=== PATIENT | female | born 1940 | race Caucasian/White ===

== ENCOUNTER → 2017-10-20 14:06 | Outpatient (CLI) | payer MEDICARE, OTHER, SELFPAY ==
[2017-10-20 15:05] LABS: Add Manual Diff / Slide Review NO; Basophils Percent Auto 1.2 % (0-2); Eosinophils Percent Auto 0.1 % (2-4); Hematocrit 40.9 % (36-46); Hemoglobin 13.2 g/dL (12.0-16.0); Lymphocytes Percent Auto 5.9 % (25-40); Mean Corpuscular HGB Conc 32.3 % (30-36); Mean Corpuscular Hemoglobin 29.1 PG (26-34); Mean Corpuscular Volume 90.3 fL (80-100); Monocytes Percent Auto 2.4 % (3-14); Neutrophils Absolute Auto 9500 /uL (3000-5900); Neutrophils Percent Auto 90.4 % (50-75); Platelet Count 239 X10^3/uL (150-400); Red Blood Cell Count 4.54 X10^6/uL (4.0-5.2); Red Cell Distribution Width 19.3 % (11.6-14.8); White Blood Cell Count 10.5 X10^3/uL (4.5-11.0)
[2017-10-20 15:55] LABS: HEMOLYSIS 23 (0-50); Iron 61 ug/dL (37-170)
[2017-10-20 16:01] LABS: Alanine Aminotransferase 30 IU/L (9-52); Albumin 3.9 g/dL (3.5-5.0); Albumin Globulin Ratio 1.3 (1.0-2.8); Alkaline Phosphatase 94 U/L (38-126); Aspartate Aminotransferase 26 IU/L (14-36); BUN Creatinine Ratio 48.3 (6-22); Bilirubin Total 0.5 mg/dL (0.2-1.3); Blood Urea Nitrogen 29 mg/dL (7-17); C-Reactive Protein Quant 1.3 mg/dL (<1.0); Calcium 9.5 mg/dL (8.4-10.2); Carbon Dioxide 28 mmol/L (22-32); Chloride 101 mmol/L (98-107); Estimated Glomerular Filt Rate > 60.0 mL/min (>60); Glucose 198 mg/dL (80-110); HEMOLYSIS 27 (0-50); Potassium 4.3 mmol/L (3.4-5.1); Sodium 139 mmol/L (137-145); Total Protein 6.9 g/dL (6.3-8.2)
[2017-10-20 16:06] LABS: Percent Iron Saturation 17 % (15-50); Total Iron Binding Capacity 362 ug/mL (265-497); Transferrin 286 mg/dL (206-381)
[2017-10-20 16:13] LABS: Vitamin D 25 Hydroxy (D3) 30.6 ng/mL (30.0-100.0)
[2017-10-20 16:44] LABS: Erythrocyte Sedimentation Rate 7 MM/HR (0-20)
== END ==
PROVIDERS: Family Provider Family Medicine; PCP Family Medicine; Visit Provider Internal Medicine Rheumatology
DX: M35.3 Polymyalgia rheumatica (principal); R60.0 Localized edema; D50.9 Iron deficiency anemia, unspecified; D68.51 Activated protein C resistance; E55.9 Vitamin D deficiency, unspecified
CPT/HCPCS: 36415; 80053; 82306; 83540; 83550; 85025; 85651; 86140

== ENCOUNTER → 2017-11-05 15:59 | Outpatient (CLI) | payer MEDICARE, OTHER, SELFPAY ==
[2017-11-05 16:24] LABS: Add Manual Diff / Slide Review NO; Basophils Percent Auto 0.4 % (0-2); Eosinophils Percent Auto 0.1 % (2-4); Hematocrit 40.2 % (36-46); Hemoglobin 13.2 g/dL (12.0-16.0); Mean Corpuscular HGB Conc 32.9 % (30-36); Mean Corpuscular Volume 91.1 fL (80-100); Monocytes Percent Auto 4.1 % (3-14); Neutrophils Absolute Auto 9800 /uL (3000-5900); Neutrophils Percent Auto 87.4 % (50-75); Platelet Count 234 X10^3/uL (150-400); Red Blood Cell Count 4.42 X10^6/uL (4.0-5.2); Red Cell Distribution Width 17.6 % (11.6-14.8); White Blood Cell Count 11.2 X10^3/uL (4.5-11.0)
[2017-11-05 17:11] LABS: Erythrocyte Sedimentation Rate 4 MM/HR (0-20)
[2017-11-05 17:15] LABS: HEMOLYSIS 39 (0-50); Iron 77 ug/dL (37-170)
[2017-11-05 17:19] LABS: Alanine Aminotransferase 44 IU/L (9-52); Albumin 3.7 g/dL (3.5-5.0); Albumin Globulin Ratio 1.4 (1.0-2.8); Alkaline Phosphatase 95 U/L (38-126); Aspartate Aminotransferase 41 IU/L (14-36); Bilirubin Total 0.4 mg/dL (0.2-1.3); Blood Urea Nitrogen 29 mg/dL (7-17); C-Reactive Protein Quant 0.9 mg/dL (<1.0); Calcium 9.4 mg/dL (8.4-10.2); Carbon Dioxide 29 mmol/L (22-32); Chloride 101 mmol/L (98-107); Estimated Glomerular Filt Rate > 60.0 mL/min (>60); Globulin 2.7 g/dL (1.7-4.1); Glucose 132 mg/dL (80-110); HEMOLYSIS 21 (0-50); Potassium 4.5 mmol/L (3.4-5.1); Sodium 137 mmol/L (137-145); Total Protein 6.4 g/dL (6.3-8.2); Vitamin D 25 Hydroxy (D3) 27.7 ng/mL (30.0-100.0)
[2017-11-05 17:27] LABS: Percent Iron Saturation 22 % (15-50); Total Iron Binding Capacity 352 ug/dL (265-497); Transferrin 277 mg/dL (206-381)
== END ==
PROVIDERS: Family Provider Internal Medicine Rheumatology; PCP Family Medicine; Visit Provider Family Medicine
DX: M35.3 Polymyalgia rheumatica (principal); R60.0 Localized edema; D50.9 Iron deficiency anemia, unspecified; D68.51 Activated protein C resistance; E55.9 Vitamin D deficiency, unspecified
CPT/HCPCS: 36415; 80053; 82306; 83540; 83550; 85025; 85651; 86140

== ENCOUNTER → 2017-12-09 14:45 | Outpatient (CLI) | payer MEDICARE, OTHER, SELFPAY ==
[2017-12-09 15:19] LABS: Add Manual Diff / Slide Review NO; Basophils Percent Auto 0.7 % (0-2); Eosinophils Percent Auto 0.1 % (2-4); Hematocrit 40.6 % (36-46); Hemoglobin 13.5 g/dL (12.0-16.0); Lymphocytes Percent Auto 8.5 % (25-40); Mean Corpuscular HGB Conc 33.2 % (30-36); Mean Corpuscular Hemoglobin 31.6 PG (26-34); Mean Corpuscular Volume 95.1 fL (80-100); Monocytes Percent Auto 3.3 % (3-14); Neutrophils Absolute Auto 9000 /uL (3000-5900); Neutrophils Percent Auto 87.4 % (50-75); Platelet Count 234 X10^3/uL (150-400); Red Blood Cell Count 4.27 X10^6/uL (4.0-5.2); Red Cell Distribution Width 16.8 % (11.6-14.8); White Blood Cell Count 10.3 X10^3/uL (4.5-11.0)
[2017-12-09 16:07] LABS: Alanine Aminotransferase 46 IU/L (9-52); Albumin Globulin Ratio 1.7 (1.0-2.8); Alkaline Phosphatase 94 U/L (38-126); Aspartate Aminotransferase 31 IU/L (14-36); Bilirubin Total 0.5 mg/dL (0.2-1.3); Blood Urea Nitrogen 28 mg/dL (7-17); Carbon Dioxide 32 mmol/L (22-32); Chloride 99 mmol/L (98-107); Estimated Glomerular Filt Rate > 60.0 mL/min (>60); Globulin 2.3 g/dL (1.7-4.1); Glucose 129 mg/dL (80-110); HEMOLYSIS < 15 (0-50); Potassium 4.7 mmol/L (3.4-5.1); Sodium 139 mmol/L (137-145); Total Protein 6.3 g/dL (6.3-8.2)
[2017-12-09 16:18] LABS: C-Reactive Protein Quant < 0.5 mg/dL (<1.0)
== END ==
PROVIDERS: Family Provider Internal Medicine Rheumatology; PCP Family Medicine; Visit Provider Family Medicine
DX: M35.3 Polymyalgia rheumatica (principal); R60.0 Localized edema
CPT/HCPCS: 36415; 80053; 85025; 86140

== ENCOUNTER → 2018-01-14 14:11 | Outpatient (CLI) | payer MEDICARE, OTHER, SELFPAY ==
--- NOTE | 2018-01-14 | DI.RAD.S_ITS ---
PROCEDURE: XR PELVIS 1-2V INDICATIONS: HIP PAIN AND LOW BACK PAIN TECHNIQUE: 1 view of the lower pelvis acquired. COMPARISON: [facility], CT, ABDOMEN/PELVIS WITH CONTRAST, 01/11/2015, 9:35. FINDINGS: Bones: Patient is status post right hip arthroplasty, with hardware components in expected positions. The hip joint appears congruent. The visualized bony structures appear intact. There is severe narrowing of the left hip joint with near bone on bone contact, subchondral sclerosis and cystic change. Periarticular osteophyte formation is present. Degenerative disc and facet disease involves the inferior lumbar spine. Soft tissues: Overlying postoperative changes are noted. No suspicious soft tissue densities. IMPRESSION: 1. Right hip arthroplasty in expected position. 2. Severe left hip joint degeneration. Dictated by: Brown CASTILLO Interpreted: Raya Reno MD on 01/14/2018 at 16:52 Approved by: Bong Ferguson M.D. on 01/14/2018 at 17:11
--- NOTE | 2018-01-14 | DI.RAD.S_ITS ---
PROCEDURE: XR LUMBAR SPINE 2-3V INDICATIONS: HIP PAIN AND LOW BACK PAIN TECHNIQUE: 2 views of the lumbar spine were acquired. COMPARISON: [facility], CR, XR PELVIS 1-2V, 01/14/2018, 14:21. FINDINGS: Bones: 5 [id number] vertebrae are present. Trace dextrocurvature. Multilevel grade 1 retrolisthesis. Grade 1 spondylolisthesis L5-S1 multilevel disc degeneration, severe at L4-L5 and L5-S1 levels where there also is moderate to severe facet joint arthropathy. No vertebral body compression fractures. No suspicious bony lesions. Severe left hip joint degeneration redemonstrated and the right hip arthroplasty is incompletely visualized. Soft tissues: Overlying bowel gas pattern is normal. No suspicious soft tissue calcifications. IMPRESSION: Multilevel degenerative change. Dictated by: Brown CASTILLO Interpreted: Raya Reno MD on 01/14/2018 at 16:53 Approved by: Bong Ferguson M.D. on 01/14/2018 at 17:11
== END ==
PROVIDERS: Family Provider Internal Medicine Rheumatology; PCP Family Medicine; Visit Provider Family Medicine
DX: M51.36 Other intervertebral disc degeneration, lumbar region (principal); M51.37 Other intervertebral disc degeneration, lumbosacral region; M54.5 Low back pain; M16.12 Unilateral primary osteoarthritis, left hip; Z96.641 Presence of right artificial hip joint
CPT/HCPCS: 72100; 72170

== ENCOUNTER → 2018-02-03 15:56 | Outpatient (CLI) | payer MEDICARE, OTHER, SELFPAY ==
[2018-02-03 17:20] LABS: Add Manual Diff / Slide Review NO; Basophils Percent Auto 0.3 % (0-2); Eosinophils Percent Auto 0.4 % (2-4); Hematocrit 39.8 % (36-46); Hemoglobin 13.2 g/dL (12.0-16.0); Lymphocytes Percent Auto 17.1 % (25-40); Mean Corpuscular HGB Conc 33.1 % (30-36); Mean Corpuscular Hemoglobin 31.7 PG (26-34); Mean Corpuscular Volume 95.6 fL (80-100); Monocytes Percent Auto 13.4 % (3-14); Neutrophils Absolute Auto 5500 /uL (3000-5900); Neutrophils Percent Auto 68.8 % (50-75); Platelet Count 246 X10^3/uL (150-400); Red Blood Cell Count 4.16 X10^6/uL (4.0-5.2); Red Cell Distribution Width 16.1 % (11.6-14.8)
[2018-02-03 18:13] LABS: BUN Creatinine Ratio 35.7 (6-22); Blood Urea Nitrogen 25 mg/dL (7-17); C-Reactive Protein Quant 1.2 mg/dL (<1.0); Calcium 9.4 mg/dL (8.4-10.2); Carbon Dioxide 35 mmol/L (22-32); Chloride 99 mmol/L (98-107); Estimated Glomerular Filt Rate > 60.0 mL/min (>60); Glucose 88 mg/dL (80-110); HEMOLYSIS < 15 (0-50); Potassium 4.7 mmol/L (3.4-5.1); Sodium 141 mmol/L (137-145)
== END ==
PROVIDERS: Family Provider Internal Medicine Rheumatology; PCP Family Medicine; Visit Provider Family Medicine
DX: M35.3 Polymyalgia rheumatica (principal); M27.62 Post-osseointegration biological failure of dental implant; M54.5 Low back pain
CPT/HCPCS: 36415; 80048; 85025; 86140

== ENCOUNTER → 2018-02-24 12:48 | Outpatient (CLI) | payer MEDICARE, OTHER, SELFPAY ==
--- NOTE | 2018-02-24 | DI.ECHO.S_ITS ---
[place] [facility]---------+ [facility] +---------+ : : [address] : : : : [id number] : : : : Phone: [phone]+ Echocardiogram Report + + :Name: NICK NEWTON V Study Date: 02/24/2018 Height: 62 in : :[facility] Weight: 250 lb : : Gender: Female BSA: 2.1 m2 : :: 1940 Age: 77 yrs BP: 170/72 mmHg: :Reason For Study: Palpitations : :Ordering Physician: Dr. Gilbert : :Clif Performed By: Anna Tesfaye : + + Interpretation Summary The study quality was technically difficult. The ejection fraction is estimated to be 60-65%. There are no obvious focal wall motion abnormalities noted but poor endocardial definition reduces the sensitivity for the detection of such. There is no significant valvular heart disease. Compared to the prior echo report on 2010, there is no significant change. Procedure: A two-dimensional transthoracic echocardiogram with color flow and Doppler was performed. The study quality was technically difficult. Comparison is made with the echocardiogram of 04/16/2011. A contrast injection of Definity was performed to improve assessment of LV function. The patient was in normal sinus rhythm during the exam. The patient had occasional PVCs during the exam. Left Ventricle: The left ventricle is normal in size. Left ventricular wall thickness is normal. The ejection fraction is estimated to be 60-65%. There are no obvious focal wall motion abnormalities noted but poor endocardial definition reduces the sensitivity for the detection of such. Right Ventricle: The right ventricle is normal in size and function. Atria: The left atrium is not well visualized. The left atrium is mildly dilated. Right atrial size is normal. There is no Doppler evidence for an interatrial shunt. Mitral Valve: The mitral valve is grossly normal. There is trace mitral regurgitation. Aortic Valve: The aortic valve is not well visualized. The aortic valve appears to opens well. Spectral Doppler assessment of the aortic valve was not done on today's exam. No aortic regurgitation is present. Tricuspid Valve: The tricuspid valve is not well visualized. There is a trace or physiologic amount of tricuspid regurgitation. The right ventricular systolic pressure is estimated to be at least 21 mmHg based on an estimated right atrial pressure of 3 mm Hg. Pulmonic Valve: The pulmonic valve is not well seen, but is grossly normal. There is a trace or physiologic amount of pulmonic regurgitation. Great Vessels: The aortic root is normal size. The ascending aorta is at the upper limits of normal in size. The aortic arch could not be visualized. The IVC is of normal diameter and collapses greater than 50% with a sniff. This suggests a low right atrial pressure of 3 mm Hg. Pericardium/ Pleura There is no pericardial effusion. MMode/2D Measurements & Calculations LVIDd: 4.6 cm LVOT diam: 2.1 cm LVIDs: 2.3 cm Ao root diam: 3.0 cm FS: 50.0 % Aortic Jxn: 2.7 cm IVSd: 0.87 cm asc Aorta Diam: 3.4 cm LVPWd: 0.90 cm LV bernard. diameter/BSA (cm/m^2): 2.2 LV sys. diameter/BSA (cm/m^2): 1.1 LA A4 area: 26.4 cm2 RA long axis: 5.4 cm LA length (vol): 5.8 cm RA area: 17.7 cm2 RA vol: 49.5 ml RA : 23.5 ml/m2 IVC diam: 1.8 cm RVD1 (basal): 3.9 cm RVD2 (mid): 3.3 cm TAPSE: 2.7 cm Doppler Measurements & Calculations MV E max jose: 87.8 cm/sec TR max jose: 210.3 cm/sec MV A max jose: 69.3 cm/sec TR max P.7 mmHg MV E/A: 1.3 PA V2 max: 111.4 cm/sec Med Peak E' Jose: 8.8 cm/sec PA V2 mean: 76.3 cm/sec E/E' med: 9.9 PA mean P.5 mmHg Lat Peak E' Jose: 7.6 cm/sec PA Accel Time: 0.07 sec E/E' lat: 11.6 E/e' average: 10.8 MV dec time: 0.16 sec MV P1/2t: 47.0 msec MV P1/2t max jose: 87.8 cm/sec MVA(P1/2t): 4.7 cm2 Reading Physician:[id number]
--- NOTE | 2018-02-24 | DI.MRI.S_ITS ---
PROCEDURE: MR LUMBAR SPINE WO CON INDICATIONS: SEVERE BACK PAIN PALPITATIONS TECHNIQUE: Noncontrast sagittal T1 spin echo and T2 fast echo, sagittal STIR, axial T1 and T2 fast spin echo through the lumbar spine. In cases with scoliosis, additional coronal T2 fast spin echo may be performed. COMPARISON: [facility], , L-SPINE WITHOUT CONTRAST, 01/16/2011, 9:03. FINDINGS: Image quality: Excellent. Alignment and Curvature: There is trace anterolisthesis of L3 on L4, L5 on S1, with the former appearing new compared to prior exam. Bone Marrow: Marrow is of normal overall signal. No acute vertebral body compression fractures. Spinal Cord: Conus medullaris terminates at the L1 level. Visualized cord demonstrates normal signal and size. Paraspinous Soft Tissues: No paravertebral masses. Increased T2 signal is present within the left kidney, likely cyst. Discs: Moderate to severe desiccation is present throughout the lumbar spine. L1-L2: Minimal disc bulge without spinal stenosis. Minimal left foraminal narrowing, slightly progressive. Facet and ligamentum flavum hypertrophy are present. L2-L3: Mild disc bulge with severe spinal stenosis, new compared to prior exam. There is prominent facet and ligamentum flavum hypertrophy. There is moderate to severe bilateral foraminal narrowing, progressive compared to prior exam. L3-L4: Mild disc bulge with moderate to severe spinal stenosis, progressive compared to prior exam. No foraminal narrowing. Facet and ligamentum flavum hypertrophy are present. Mild bilateral foraminal narrowing, with minimal interval progression. L4-L5: Mild disc bulge with severe spinal stenosis, progressive compared to prior exam. Moderate bilateral foraminal narrowing, progressive compared to prior exam. L5-S1: Mild disc bulge with mild spinal stenosis, mildly, progressive. Moderate left and mild to moderate right foraminal narrowing. Facet and ligamentum flavum hypertrophy. IMPRESSION: 1. Multilevel degenerative changes are present, with areas of progression as above. 2. Multilevel foraminal narrowing is present, most notable at L3-4, L4-5, secondary to facet arthropathy. 3. Multilevel spinal stenosis, most severe at L2-3 progressive, secondary to disc bulge and facet arthropathy. Dictated by: Lucero Luna M.D. on 02/24/2018 at 14:52 Approved by: Lucero Luna M.D. on 02/24/2018 at 15:19
== END ==
PROVIDERS: Family Provider Internal Medicine Rheumatology; PCP Family Medicine; Visit Provider Family Medicine
DX: M54.5 Low back pain (principal); R00.2 Palpitations; M51.36 Other intervertebral disc degeneration, lumbar region; M51.37 Other intervertebral disc degeneration, lumbosacral region; M48.061 Spinal stenosis, lumbar region without neurogenic claudication; M48.07 Spinal stenosis, lumbosacral region; M47.816 Spondylosis without myelopathy or radiculopathy, lumbar region; M47.817 Spondylosis without myelopathy or radiculopathy, lumbosacral region
CPT/HCPCS: 72148; 93306; Q9957

== ENCOUNTER → 2018-03-29 14:47 | Outpatient (CLI) | payer MEDICARE, OTHER, SELFPAY ==
[2018-03-29 15:28] LABS: Add Manual Diff / Slide Review NO; Basophils Percent Auto 1.7 % (0-2); Eosinophils Percent Auto 0.5 % (2-4); Hematocrit 38.6 % (36-46); Hemoglobin 12.7 g/dL (12.0-16.0); Lymphocytes Percent Auto 10.8 % (25-40); Mean Corpuscular HGB Conc 32.9 % (30-36); Mean Corpuscular Hemoglobin 31.4 PG (26-34); Mean Corpuscular Volume 95.3 fL (80-100); Monocytes Percent Auto 5.1 % (3-14); Neutrophils Absolute Auto 7800 /uL (3000-5900); Neutrophils Percent Auto 81.9 % (50-75); Platelet Count 244 X10^3/uL (150-400); Red Blood Cell Count 4.05 X10^6/uL (4.0-5.2); Red Cell Distribution Width 17.1 % (11.6-14.8); White Blood Cell Count 9.6 X10^3/uL (4.5-11.0)
[2018-03-29 15:58] LABS: Iron 39 ug/dL (37-170)
[2018-03-29 16:00] LABS: Alanine Aminotransferase 44 IU/L (9-52); Albumin 4.1 g/dL (3.5-5.0); Albumin Globulin Ratio 1.9 (1.0-2.8); Alkaline Phosphatase 88 U/L (38-126); Aspartate Aminotransferase 28 IU/L (14-36); BUN Creatinine Ratio 41.7 (6-22); Bilirubin Total 0.3 mg/dL (0.2-1.3); Blood Urea Nitrogen 25 mg/dL (7-17); C-Reactive Protein Quant 0.7 mg/dL (<1.0); Calcium 9.5 mg/dL (8.4-10.2); Carbon Dioxide 34 mmol/L (22-32); Chloride 96 mmol/L (98-107); Estimated Glomerular Filt Rate > 60.0 mL/min (>60); Globulin 2.2 g/dL (1.7-4.1); Glucose 144 mg/dL (80-110); HEMOLYSIS < 15 (0-50); Sodium 141 mmol/L (137-145); Total Protein 6.3 g/dL (6.3-8.2)
== END ==
PROVIDERS: Family Provider Internal Medicine Rheumatology; PCP Family Medicine; Visit Provider Family Medicine
DX: M35.3 Polymyalgia rheumatica (principal); R60.0 Localized edema; M19.90 Unspecified osteoarthritis, unspecified site; D50.9 Iron deficiency anemia, unspecified
CPT/HCPCS: 36415; 80053; 83540; 85025; 86140

== ENCOUNTER → 2018-05-25 13:16 | Outpatient (CLI) | payer MEDICARE, OTHER, SELFPAY ==
[2018-05-25 13:52] LABS: Add Manual Diff / Slide Review NO; Basophils Percent Auto 1.2 % (0-2); Eosinophils Percent Auto 0.2 % (2-4); Hematocrit 38.8 % (36-46); Hemoglobin 12.6 g/dL (12.0-16.0); Lymphocytes Percent Auto 7.3 % (25-40); Mean Corpuscular HGB Conc 32.4 % (30-36); Mean Corpuscular Volume 95.6 fL (80-100); Monocytes Percent Auto 4.4 % (3-14); Neutrophils Absolute Auto 10100 /uL (1500-7000); Neutrophils Percent Auto 86.9 % (50-75); Platelet Count 248 X10^3/uL (150-400); Red Blood Cell Count 4.06 X10^6/uL (4.0-5.2); Red Cell Distribution Width 16.4 % (11.6-14.8); White Blood Cell Count 11.6 X10^3/uL (4.5-11.0)
[2018-05-25 14:11] LABS: Erythrocyte Sedimentation Rate 7 MM/HR (0-20)
[2018-05-25 14:25] LABS: Alanine Aminotransferase 28 IU/L (9-52); Albumin Globulin Ratio 1.7 (1.0-2.8); Alkaline Phosphatase 65 U/L (38-126); Aspartate Aminotransferase 21 IU/L (14-36); Bilirubin Total 0.4 mg/dL (0.2-1.3); Blood Urea Nitrogen 24 mg/dL (7-17); Calcium 9.5 mg/dL (8.4-10.2); Carbon Dioxide 27 mmol/L (22-32); Chloride 103 mmol/L (98-107); Estimated Glomerular Filt Rate > 60.0 mL/min (>60); Globulin 2.4 g/dL (1.7-4.1); Glucose 142 mg/dL (80-110); HEMOLYSIS < 15 (0-50); Potassium 4.3 mmol/L (3.4-5.1); Sodium 140 mmol/L (137-145); Total Protein 6.4 g/dL (6.3-8.2)
[2018-05-25 14:27] LABS: C-Reactive Protein Quant < 0.5 mg/dL (<1.0)
== END ==
PROVIDERS: Family Provider Internal Medicine Rheumatology; PCP Family Medicine; Visit Provider Family Medicine
DX: M35.3 Polymyalgia rheumatica (principal); R06.00 Dyspnea, unspecified; R60.0 Localized edema
CPT/HCPCS: 36415; 80053; 85025; 85651; 86140

== ENCOUNTER → 2018-06-22 13:40 | Outpatient (CLI) | payer MEDICARE, OTHER, SELFPAY ==
--- NOTE | 2018-06-22 | DI.RAD.S_ITS ---
PROCEDURE: FL JOINT INJECTION LARGE LT INDICATIONS: LEFT HIP PAIN DEGENERATIVE ARTHRITIS TECHNIQUE: The indications, alternatives, benefits, risks, and complications of the procedure were explained to the patient. Written informed consent was obtained and placed in the chart. The patient was placed in an appropriate position on the fluoroscopy table, and a site was chosen for percutaneous access under fluoroscopic guidance. The site was prepped and draped in a sterile fashion. Local anesthetic was administered using a 1% lidocaine solution. A hypodermic or spinal needle was then used to access the symptomatic joint. Intra-articular location of the needle tip was confirmed by injecting a small amount of contrast, followed by steroid administration. The needle was then withdrawn, and a bandage applied to the puncture site. FINDINGS: Joint injected: Left hip Medications injected: 5 mL of 40 mg/mL Kenalog and 0.5% Ropivacaine mixture. Complications: None. IMPRESSION: Successful fluoroscopically guided administration of steroid and anaesthetic solution into the left hip joint. Dictated by: Edgar Yost M.D. on 06/22/2018 at 15:00 Approved by: Edgar Yost M.D. on 06/22/2018 at 15:01
== END ==
PROVIDERS: Family Provider Internal Medicine Rheumatology; PCP Family Medicine; Visit Provider Family Medicine
DX: M25.552 Pain in left hip (principal); M16.12 Unilateral primary osteoarthritis, left hip
CPT/HCPCS: 20610; 77002

== ENCOUNTER → 2018-07-05 14:53 | Outpatient (CLI) | payer MEDICARE, OTHER, SELFPAY ==
[2018-07-05 15:19] LABS: Hemoglobin 12.8 g/dL (12.0-16.0)
[2018-07-05 15:25] LABS: Hematocrit 39.6 % (36-46); Mean Corpuscular HGB Conc 32.3 % (30-36); Mean Corpuscular Hemoglobin 30.6 PG (26-34); Mean Corpuscular Volume 94.6 fL (80-100); Platelet Count 220 X10^3/uL (150-400); Red Blood Cell Count 4.19 X10^6/uL (4.0-5.2); Red Cell Distribution Width 17.4 % (11.6-14.8); White Blood Cell Count 12.5 X10^3/uL (4.5-11.0)
[2018-07-05 15:27] LABS: Add Manual Diff / Slide Review YES
[2018-07-05 15:54] LABS: Anisocytosis 2+; Neutrophils Absolute Manual 10500 /uL (3000-5900); Total Cells Counted 100
[2018-07-05 15:55] LABS: Hypochromasia 1+
[2018-07-05 16:37] LABS: Iron 85 ug/dL (37-170)
[2018-07-05 16:38] LABS: Alanine Aminotransferase 42 IU/L (9-52); Albumin Globulin Ratio 1.6 (1.0-2.8); Alkaline Phosphatase 72 U/L (38-126); Aspartate Aminotransferase 35 IU/L (14-36); BUN Creatinine Ratio 68.3 (6-22); Bilirubin Total 0.3 mg/dL (0.2-1.3); Blood Urea Nitrogen 41 mg/dL (7-17); C-Reactive Protein Quant < 0.5 mg/dL (<1.0); Calcium 9.3 mg/dL (8.4-10.2); Carbon Dioxide 30 mmol/L (22-32); Chloride 100 mmol/L (98-107); Estimated Glomerular Filt Rate > 60.0 mL/min (>60); Globulin 2.5 g/dL (1.7-4.1); Glucose 132 mg/dL (80-110); HEMOLYSIS 27 (0-50); Potassium 4.3 mmol/L (3.4-5.1); Sodium 138 mmol/L (137-145); Total Protein 6.5 g/dL (6.3-8.2)
== END ==
PROVIDERS: Family Provider Internal Medicine Rheumatology; PCP Family Medicine; Visit Provider Family Medicine
DX: M35.3 Polymyalgia rheumatica (principal); R60.0 Localized edema; D50.9 Iron deficiency anemia, unspecified
CPT/HCPCS: 36415; 80053; 83540; 85025; 86140

== ENCOUNTER → 2018-08-03 16:40 | Outpatient (CLI) | payer MEDICARE, OTHER, SELFPAY ==
--- NOTE | 2018-08-03 16:51 | DI.RAD.S_ITS ---
PROCEDURE: XR KNEE LT 3V INDICATIONS: PAIN AFTER FALL TECHNIQUE: 3 views of the knee were acquired. COMPARISON: [facility], , KNEE 3V LEFT, 01/13/2011, 11:03. FINDINGS: Bones: No fractures or dislocations. No suspicious bony lesions. Unicompartmental medial arthroplasty appears intact and and expected postoperative alignment. Mild lateral compartment joint degeneration and spurring. Subtle early chondrocalcinosis Soft tissues: No joint effusion. No suspicious soft tissue calcifications. IMPRESSION: No fracture. Degenerative and postsurgical changes as above. Dictated by: Damien Mcguire M.D. on 08/04/2018 at 9:22 Approved by: Damien Mcguire M.D. on 08/04/2018 at 9:25
--- NOTE | 2018-08-03 16:51 | DI.RAD.S_ITS ---
PROCEDURE: XR THORACIC SPINE 3V INDICATIONS: PAIN AFTER FALL TECHNIQUE: 3 views of the thoracic spine were acquired. COMPARISON: None. FINDINGS: Bones: No fractures or dislocations. No suspicious bony lesions. Elevation of the left hemidiaphragm. No acute consolidation. Scattered subsegmental atelectasis and/or scarring. Diffuse spondylitic changes. Soft tissues: No paravertebral stripe thickening. IMPRESSION: No fracture radiographically identified. Diffuse spondylosis and facet arthropathy. Dictated by: Damien Mcguire M.D. on 08/04/2018 at 9:10 Approved by: Damien Mcguire M.D. on 08/04/2018 at 9:14
--- NOTE | 2018-08-03 16:51 | DI.RAD.S_ITS ---
PROCEDURE: XR LUMBAR SPINE 2-3V INDICATIONS: PAIN AFTER FALL TECHNIQUE: 2 views of the lumbar spine were acquired. COMPARISON: [facility], CR, XR LUMBAR SPINE 2-3V, 01/14/2018, 14:21. FINDINGS: Bones: No fracture or focal osseous destruction. Diffuse facet arthropathy. Trace retrolisthesis of L2 on L3. Lateral curvature of the spine. Moderate to severe disc space narrowing from L2-sacrum. There is also lower thoracic spondylosis with diffuse disc height loss. Severe left hip joint degeneration Soft tissues: Overlying bowel gas pattern is normal. No suspicious soft tissue calcifications. IMPRESSION: Severe diffuse lower thoracic and lumbar spondylosis, grossly unchanged since 01/14/18. Severe left hip joint degeneration. No fracture Dictated by: Damien Mcguire M.D. on 08/04/2018 at 8:53 Approved by: Damien Mcguire M.D. on 08/04/2018 at 8:55
--- NOTE | 2018-08-03 16:51 | DI.RAD.S_ITS ---
PROCEDURE: XR PELVIS 1-2V INDICATIONS: PAIN AFTER FALL TECHNIQUE: 1 view of the lower pelvis acquired. COMPARISON: [facility], , XR PELVIS 1-2V, 01/14/2018, 14:21. FINDINGS: Bones: Patient is status post right hip arthroplasty, with hardware components in expected positions. The hip joint appears congruent. The visualized bony structures appear intact. Severe left hip osteoarthritis is noted. Soft tissues: Overlying postoperative changes are noted. No suspicious soft tissue densities. IMPRESSION: 1. Status post right hip arthroplasty. The prosthesis in expected position. 2. Severe left hip osteoarthritis. Dictated by: Raya Reno MD, PhD on 08/04/2018 at 17:22 Approved by: Raya Reno MD, PhD on 08/04/2018 at 17:23
[2018-08-03 18:29] LABS: Add Manual Diff / Slide Review NO; Basophils Absolute Auto 100 /uL (0-100); Basophils Percent Auto 1.1 % (0-2); Eosinophils Absolute Auto 0 /uL (0-450); Eosinophils Percent Auto 0.2 % (2-4); Hematocrit 36.6 % (36-46); Hemoglobin 11.8 g/dL (12.0-16.0); Lymphocytes Absolute Auto 1300 /uL (1100-4500); Lymphocytes Percent Auto 13.2 % (25-40); Mean Corpuscular HGB Conc 32.2 % (30-36); Mean Corpuscular Hemoglobin 30.1 PG (26-34); Mean Corpuscular Volume 93.3 fL (80-100); Monocytes Absolute Auto 900 /uL (0-900); Monocytes Percent Auto 8.9 % (3-14); Neutrophils Absolute Auto 7500 /uL (1500-7000); Neutrophils Percent Auto 76.6 % (50-75); Platelet Count 208 X10^3/uL (150-400); Red Blood Cell Count 3.92 X10^6/uL (4.0-5.2); Red Cell Distribution Width 16.2 % (11.6-14.8); White Blood Cell Count 9.8 X10^3/uL (4.5-11.0)
[2018-08-03 18:42] LABS: Alanine Aminotransferase 32 IU/L (9-52); Albumin 3.5 g/dL (3.5-5.0); Albumin Globulin Ratio 1.3 (1.0-2.8); Alkaline Phosphatase 70 U/L (38-126); Aspartate Aminotransferase 27 IU/L (14-36); BUN Creatinine Ratio 53.3 (6-22); Bilirubin Total 0.2 mg/dL (0.2-1.3); Blood Urea Nitrogen 32 mg/dL (7-17); C-Reactive Protein Quant 3.3 mg/dL (<1.0); Calcium 8.9 mg/dL (8.4-10.2); Carbon Dioxide 32 mmol/L (22-32); Chloride 97 mmol/L (98-107); Creatine Kinase 23 U/L (30-135); Estimated Glomerular Filt Rate > 60.0 mL/min (>60); Globulin 2.8 g/dL (1.7-4.1); Glucose 102 mg/dL (80-110); HEMOLYSIS < 15 (0-50); Magnesium 2.3 mg/dL (1.6-2.3); Potassium 3.9 mmol/L (3.4-5.1); Sodium 135 mmol/L (137-145); Total Protein 6.3 g/dL (6.3-8.2); Uric Acid 4.6 mg/dL (2.5-6.2)
[2018-08-03 19:10] LABS: Thyroid Stimulating Hormone 1.05 uIU/mL (0.47-4.68)
== END ==
PROVIDERS: Family Provider Internal Medicine Rheumatology; PCP Family Medicine; Visit Provider Family Medicine
DX: M54.9 Dorsalgia, unspecified (principal); M25.552 Pain in left hip; M25.562 Pain in left knee; M47.814 Spondylosis without myelopathy or radiculopathy, thoracic region; M47.815 Spondylosis without myelopathy or radiculopathy, thoracolumbar region; M16.12 Unilateral primary osteoarthritis, left hip; M17.12 Unilateral primary osteoarthritis, left knee; M48.061 Spinal stenosis, lumbar region without neurogenic claudication; M35.3 Polymyalgia rheumatica; D50.9 Iron deficiency anemia, unspecified; R60.0 Localized edema; I10 Essential (primary) hypertension; E03.9 Hypothyroidism, unspecified; Z96.641 Presence of right artificial hip joint
CPT/HCPCS: 36415; 72072; 72100; 72170; 73562; 80053; 82550; 83735; 84443; 84550; 85025; 86140

== ENCOUNTER → 2018-08-24 10:29 | Outpatient (CLI) | payer MEDICARE, OTHER, SELFPAY ==
--- NOTE | 2018-08-24 | DI.RAD.S_ITS ---
PROCEDURE: FL JOINT INJECTION LARGE LT INDICATIONS: SEVERE DEGENERATIVE ARTHRITIS OF RIGHT HIP TECHNIQUE: The indications, alternatives, benefits, risks, and complications of the procedure were explained to the patient. Written informed consent was obtained and placed in the chart. The patient was placed in an appropriate position on the fluoroscopy table, and a site was chosen for percutaneous access under fluoroscopic guidance. The site was prepped and draped in a sterile fashion. Local anesthetic was administered using a 1% lidocaine solution. A hypodermic or spinal needle was then used to access the symptomatic joint. Intra-articular location of the needle tip was confirmed by injecting a small amount of contrast, followed by steroid administration. The needle was then withdrawn, and a bandage applied to the puncture site. FINDINGS: Joint injected: Left hip Medications injected: 5 mL of 40 mg/mL Kenalog and 0.5% Ropivacaine mixture. Patient's pain before injection: 5 out of 10. Patient's pain after injection: 2 out of 10. Complications: None. IMPRESSION: Successful fluoroscopically guided administration of steroid and anaesthetic solution into the left hip joint. Dictated by: Edgar Yost M.D. on 08/24/2018 at 12:43 Approved by: Edgar Yost M.D. on 08/24/2018 at 12:44
[2018-08-24 13:00] LABS: C-Reactive Protein Quant 1.5 mg/dL (<1.0)
== END ==
PROVIDERS: Family Provider Internal Medicine Rheumatology; PCP Family Medicine; Visit Provider Family Medicine
DX: M16.12 Unilateral primary osteoarthritis, left hip (principal); M35.3 Polymyalgia rheumatica
CPT/HCPCS: 20610; 36415; 77002; 86140